=== PATIENT | male | born 1980 | race Hispanic/Latino ===

== ENCOUNTER 2019-01-15 08:47 | Outpatient (CLI) | payer BC ==
--- NOTE | 2019-01-15 09:59 | ULT ---
RIGHT UPPER QUADRANT ULTRASOUND: 01/15/2019 PROVIDED CLINICAL HISTORY: Right upper quadrant pain. FINDINGS: The visualized portions of the IVC are normal. The pancreas is obscured. The liver demonstrates no mass or intrahepatic biliary ductal dilatation. The common duct is not dilated. The gallbladder dem onstrates no stones, wall thickening, or pericholecystic fluid. The right kidney demonstrates no judy dence for hydronephrosis or mass. IMPRESSION: Unremarkable right upper quadrant ultrasound with limitations as above. POS: [facility]
--- NOTE | 2019-01-15 10:10 | RAD ---
CHEST TWO VIEWS: HISTORY: Right upper quadrant abdominal pain. Gastroesophageal reflux disease. FINDINGS: Heart size is normal. Lungs are clear. IMPRESSION: No acute intrathoracic disease. POS: [facility]
== END 2019-01-15 08:48 | disposition home or self-care (01) ==
LOC: ULT 08:47
PROVIDERS: ATTEND Internal Medicine Gastroenterology
DX: K21.9 Gastro-esophageal reflux disease without esophagitis (principal); R10.11 Right upper quadrant pain
CPT/HCPCS: 71046; 76705